=== PATIENT | female | born 1950 | race Caucasian/White ===

== ENCOUNTER 2022-02-22 14:14 | Emergency (ER) | payer BC, MEDICAID ==
[~2022-02-22] VITALS: Ht 152.4 cm; Wt 100.0 kg
[2022-02-22] MEDS ORDERED: MORPHINE SULFATE 10 MG/ML CPJ IM ONE (14:45)
[2022-02-22 16:00] LABS: BASOPHILS % 0.6 % (0.0-2.0); EOSINOPHILS % 10.3 % (0.0-5.0); HEMATOCRIT. 44.6 % (36.0-48.0); HEMOGLOBIN. 14.5 g/dL (12.0-16.0); LYMPHOCYTES % 13.7 % (20.0-50.0); MEAN CORPUSCULAR HEMOGLOBIN 29.3 pg (28.0-32.0); MEAN CORPUSCULAR VOLUME 90.3 fL (81.0-99.0); MEAN PLATELET VOLUME 9.1 fl (7.4-10.4); MONOCYTES % 4.7 % (2.0-8.0); NEUTROPHILS % 70.7 % (40.0-76.0); PLATELET 217 x1000/uL (130-400); RED BLOOD CELL COUNT 4.94 mill/uL (4.2-5.4); RED CELL DISTRIBUTION WIDTH 15.1 % (11.6-14.6)
[2022-02-22 16:06] LABS: CHLORIDE 110 mEq/L (98-107)
[2022-02-22] MEDS ORDERED: GABA300C MT (21:09)
[2022-02-22 21:58] VITALS: BP 112/56
== END 2022-02-22 21:58 | disposition home or self-care (01) ==
LOC: ER 14:25
DX: S70.01XA Contusion of right hip, initial encounter (principal); I12.0 Hypertensive chronic kidney disease with stage 5 chronic kidney disease or end stage renal disease; N18.6 End stage renal disease; E78.00 Pure hypercholesterolemia, unspecified; Z98.890 Other specified postprocedural states; W18.30XA Fall on same level, unspecified, initial encounter; Y93.9 Activity, unspecified; Y92.89 Other specified places as the place of occurrence of the external cause; Y99.8 Other external cause status
CPT/HCPCS: 36415; 73502; 73560; 80053; 85025; 99284